=== PATIENT | female | born 1955 | race Caucasian/White ===

== ENCOUNTER 2017-08-08 14:51 | Emergency (ER) | payer OTHER, BC ==
[2017-08-08 15:19] VITALS: BP 133/80; PULSE 65; TEMP 98.4; BMI 28.8
[2017-08-08] MEDS ORDERED: KETOROLAC TROMETHAMINE 60 MG/2 ML VIAL IM ONE (15:56)
[2017-08-08] MEDS ORDERED: KETOROLAC TROMETHAMINE 60 MG/2 ML VIAL ONE (15:59)
--- NOTE | 2017-08-08 16:15 | PDOC ---
History of Present Illness - General Chief Complaint: Injury Stated Complaint: FALL Time Seen by Provider: 08/08/17 15:50 History Source: Patient Exam Limitations: No Limitations - History of Present Illness Initial Comments: 08/08/17 16:10 61 yr male female with c/o pain after slip and fall today at work. Pt slipped in a puddle of water and fell twisting her knee and her lower back. no LOC no head trauma. Occurred: reports: this afternoon Past History - Past Medical History Allergies/Adverse Reactions: Allergies Allergy/AdvReac Type Severity Reaction Status Date / Time No Known Allergies Allergy Verified 08/08/17 15:06 Home Medications: Ambulatory Orders Alprazolam 1 mg PO HS 04/19/15 Pantoprazole Sodium [Protonix] 40 mg PO DAILY 04/19/15 Aspirin Coated [Ecotrin -] 81 mg PO DAILY 07/20/16 Atorvastatin Ca [Lipitor] 10 mg PO DAILY 07/20/16 Cholecalciferol (Vitamin D3) [Vitamin D3] 2,000 unit PO DAILY 07/20/16 Cyanocobalamin [Vitamin B12 -] 1,000 mcg PO DAILY 07/20/16 Nebivolol [Bystolic -] 5 mg PO HS 07/20/16 Oxycodone HCl/Acetaminophen [Percocet 5-325 mg Tablet -] 2 tab PO Q4H #60 tablet MDD 6 08/15/16 Diazepam [Valium] 5 mg PO Q6H PRN #8 tablet MDD 15mg 08/08/17 Naproxen [Naprosyn -] 500 mg PO BID PRN #21 tablet 08/08/17 Anemia: No Asthma: No Cancer: No Cardiac Disorders: No CVA: No COPD: Yes (MILD) CHF: No Dementia: No Diabetes: No GI Disorders: Yes (REFLUX) Disorders: No HTN: Yes (DX 2005) Hypercholesterolemia: Yes (DX 2005) Liver Disease: No Seizures: No Thyroid Disease: No - Surgical History Abdominal Surgery: No Appendectomy: No Cardiac Surgery: No Cholecystectomy: Yes (SANTOSH HOANG-2003) Lung Surgery: No Neurologic Surgery: No Orthopedic Surgery: Yes (LEFT KNEE ARTHROSCOPY,LEFT WRIST SX DEQUERVAINS) - Psycho/Social/Smoking Cessation Hx Anxiety: Yes Suicidal Ideation: No Smoking Status: No Smoking History: Former smoker Have you smoked in the past 12 months: No Number of Cigarettes Smoked Daily: 20 If you are a former smoker, when did you quit?: 10/2010 Information on smoking cessation initiated: No Hx Alcohol Use: No Drug/Substance Use Hx: No Substance Use Type: None Hx Substance Use Treatment: No Trauma Specific PMHX - Complaint Specific PMHX Arthritis: No Back Injury: Yes Neck Injury: No Hx Sacro Iliac Joint Dysfunction: No Review of Systems - Review of Systems Able to Perform ROS?: Yes Is the patient limited Chinese proficient: No Constitutional: No: Symptoms Reported HEENTM: No: Symptoms Reported Respiratory: No: Symptoms reported Cardiac (ROS): No: Symptoms Reported ABD/GI: No: Symptoms Reported Musculoskeletal: Yes: See HPI *Physical Exam - Vital Signs Last Vital Signs Temp Pulse Resp BP Pulse Ox 98.4 F 65 17 133/80 99 08/08/17 15:01 08/08/17 15:01 08/08/17 15:01 08/08/17 15:01 08/08/17 15:01 - Physical Exam General Appearance: Yes: Nourished, Appropriately Dressed HEENT: positive: EOMI, MENDOZA Neck: positive: Supple Respiratory/Chest: positive: Lungs Clear, Normal Breath Sounds Cardiovascular: positive: Regular Rhythm, Regular Rate Gastrointestinal/Abdominal: positive: Normal Bowel Sounds, Soft Musculoskeletal: positive: Normal Inspection, Decreased Range of Motion (due to pain ). negative: CVA Tenderness, CVA Tenderness (R), CVA Tenderness (L), Muscle Spasm, Vertebral Tenderness Extremity: positive: Normal Capillary Refill, Normal Inspection, Normal Range of Motion. negative: Tender, Swelling Integumentary: positive: Normal Color, Dry, Warm Neurologic: positive: Fully Oriented, Alert, Normal Mood/Affect, Normal Response , Motor Strength 5/5 ED Treatment Course - Medications Given in the ED: ED Medications Discontinued Medications Generic Name Dose Route Start Last Admin Trade Name Freq PRN Reason Stop Dose Admin Ketorolac Tromethamine 60 mg 08/08/17 15:56 08/08/17 16:07 Toradol Injection - IM 08/08/17 15:57 60 mg ONCE ONE Administration Medical Decision Making - Medical Decision Making 08/08/17 16:12 cc: slip and fall twisted knee and low back , no bony tenderness, no deformity or swelling pt ambulatory steady gait will give toradol dc with naproysn and muscle relaxants for muscle strain pt agrees with plan all questions asked and answered 08/09/17 09:33 *DC/Admit/Observation/Transfer Diagnosis at time of Disposition: Muscle strain Knee sprain Qualifiers: Encounter type: initial encounter Involved ligament of knee: other ligament Laterality: left Qualified Code(s): S83.8X2A - Sprain of other specified parts of left knee, initial encounter - Prescriptions Prescriptions: Naproxen [Naprosyn -] 500 mg PO BID PRN #21 tablet PRN Reason: Pain Diazepam [Valium] 5 mg PO Q6H PRN #8 tablet MDD 15mg PRN Reason: Muscle Spasms - Referrals Referrals: Arnoldo Graves MD [Primary Care Provider] - - Patient Instructions Additional Instructions: warm compresses warm showers take the valium as needed for muscle spasm take naprosyn for pain do not drive, drink alcohol while taking valium follow with your doctor tomorrow if any worse - Post Discharge Activity Work/School Note: Back to Work
== END 2017-08-08 16:49 | disposition home or self-care (01) ==
LOC: SUPCPDRO 14:51 → JERFT 14:51
PROC: 3E0233Z Introduction of Anti-inflammatory into Muscle, Percutaneous Approach (ICD-10-PCS; principal; 2017-08-08)
DX: S83.8X2A Sprain of other specified parts of left knee, initial encounter (principal); W01.0XXA Fall on same level from slipping, tripping and stumbling without subsequent striking against object, initial encounter; Y93.89 Activity, other specified; Y92.69 Other specified industrial and construction area as the place of occurrence of the external cause; Y99.0 Civilian activity done for income or pay; I10 Essential (primary) hypertension; E78.00 Pure hypercholesterolemia, unspecified; J44.9 Chronic obstructive pulmonary disease, unspecified; K21.9 Gastro-esophageal reflux disease without esophagitis; Z87.891 Personal history of nicotine dependence
CPT/HCPCS: 99281-25

== ENCOUNTER 2018-08-16 10:01 | Inpatient (IN) | payer BC ==
[2018-08-16 10:25] VITALS: BMI 28.3
[2018-08-16] MEDS ORDERED: MECLIZINE HCL 25 MG TABLET (FP) PO ONE (11:08)
[2018-08-16] MEDS ORDERED: MECLIZINE HCL 25 MG TABLET (FP) ONE (11:16)
[2018-08-16] MEDS ORDERED: MECLIZINE HCL 12.5 MG TABLET ONE (11:17)
[2018-08-16 11:22] LABS: BASO % 0.8 % (0-2.0); EOS % 3.7 % (0-4.5); HEMATOCRIT 39.2 % (32.4-45.2); HEMOGLOBIN 13.1 GM/dL (10.7-15.3); LYMPH % 30.8 % (8-40); MCH 30.3 pg (25.7-33.7); MCHC 33.3 g/dl (32.0-36.0); MEAN CELL VOLUME 90.9 fl (80-96); MEAN PLT VOLUME 8.8 fl (7.5-11.1); MONO % 9.8 % (3.8-10.2); NEUT % 54.9 % (42.8-82.8); PLATELET COUNT 251 K/MM3 (134-434); RBC 4.31 M/mm3 (3.60-5.2); RDW 13.2 % (11.6-15.6); WHITE BLOOD COUNT 6.8 K/mm3 (4.0-10.0)
--- NOTE | 2018-08-16 11:30 | PDOC ---
History of Present Illness - General Chief Complaint: Lightheaded Stated Complaint: DIZZINESS Time Seen by Provider: 08/16/18 10:35 History Source: Patient Exam Limitations: No Limitations - History of Present Illness Initial Comments: 08/16/18 11:00 62-year-old Female with history of hypertension and dyslipidemia presents to ED with complaints of intermittent dizziness with normal movement for the past week without visual changes, headache, nausea, or weakness. Patient also states has had intermittent palpitations worsened with lying down along with intermittent sweating for the past 2 days. Patient describes a dull sensation to her right scapula and intermittently to her midsternal area without aggravating or alleviating factors. Patient states went to her neurologist yesterday who recommended following up with her transportation escort Dr. Hernandez since there were no acute findings on physical exam yesterday. Patient denies neck pain, fever, chills, recent surgery, recent travel, lower extremity edema, orthopnea, or chest pain presently. Patient does state history of vertigo numerous years ago and was on meclizine with no improvement. Timing/Duration: 1 week, intermittent Severity: moderate Associated Symptoms: reports: chest pain, diaphoresis. denies: shortness of breath, syncope, weakness Past History - Travel Traveled outside of the country in the last 30 days: No - Past Medical History Allergies/Adverse Reactions: Allergies Allergy/AdvReac Type Severity Reaction Status Date / Time No Known Allergies Allergy Verified 08/16/18 10:20 Home Medications: Ambulatory Orders Alprazolam 1 mg PO HS 04/19/15 Aspirin Coated [Ecotrin -] 81 mg PO DAILY 07/20/16 Atorvastatin Ca [Lipitor] 10 mg PO DAILY 07/20/16 Cyanocobalamin [Vitamin B12 -] 1,000 mcg PO DAILY 07/20/16 Nebivolol [Bystolic -] 40 mg PO HS 07/20/16 Anemia: No Asthma: No Cancer: No Cardiac Disorders: No CVA: No COPD: Yes (MILD) CHF: No Dementia: No Diabetes: No GI Disorders: Yes (REFLUX) Disorders: No HTN: Yes (DX 2005) Hypercholesterolemia: Yes (DX 2005) Liver Disease: No Seizures: No Thyroid Disease: No - Surgical History Abdominal Surgery: No Appendectomy: No Cardiac Surgery: No Cholecystectomy: Yes (SANT[facility] CHOLEY-2003) Lung Surgery: No Neurologic Surgery: No Orthopedic Surgery: Yes (LEFT KNEE ARTHROSCOPY,LEFT WRIST SX DEQUERVAINS) - Suicide/Smoking/Psychosocial Hx Smoking Status: No Smoking History: Former smoker Have you smoked in the past 12 months: No Number of Cigarettes Smoked Daily: 20 If you are a former smoker, when did you quit?: 2007 Information on smoking cessation initiated: No Hx Alcohol Use: No Drug/Substance Use Hx: No Substance Use Type: None Hx Substance Use Treatment: No Patient Lives Alone: No Lives with/in: spouse/SO Review of Systems - Review of Systems Able to Perform ROS?: No Constitutional: Yes: Diaphoresis HEENTM: No: Symptoms Reported Respiratory: No: Symptoms reported Cardiac (ROS): Yes: Chest Pain, Lightheadedness, Palpitations ABD/GI: No: Symptoms Reported : No: Symptoms Reported Musculoskeletal: No: Symptoms Reported Integumentary: No: Symptoms Reported Neurological: Yes: Dizziness Endocrine: No: Symptoms Reported Hematologic/Lymphatic: No: Symptoms Reported *Physical Exam - Vital Signs Last Vital Signs Temp Pulse Resp BP Pulse Ox 98.1 F 59 L 16 136/86 99 08/16/18 10:22 08/16/18 10:22 08/16/18 10:22 08/16/18 10:22 08/16/18 10:22 - Physical Exam General Appearance: Yes: Nourished, Appropriately Dressed. No: Apparent Distress HEENT: positive: EOMI, MENDOZA, TMs Normal. negative: Pharynx Normal, Pale Conjunctivae Neck: positive: Normal Thyroid, Supple Respiratory/Chest: positive: Lungs Clear, Normal Breath Sounds. negative: Respiratory Distress, Accessory Muscle Use Cardiovascular: positive: Regular Rhythm, Regular Rate. negative: Murmur Vascular Pulses: Dorsalis-Pedis (R): 2+, Doralis-Pedis (L): 2+ Gastrointestinal/Abdominal: positive: Soft. negative: Tenderness Musculoskeletal: negative: CVA Tenderness Extremity: positive: Normal Capillary Refill. negative: Pedal Edema Integumentary: positive: Normal Color, Warm, Moist Neurologic: positive: Normal Mood/Affect, Motor Strength 5/5, Other (negative Hallpikes test) Heart Score/ECG Review - History History: Slightly suspicious - Electrocardiogram EKG: Normal - Age Age: 45-65 - Risk Factors Risk Factors Heart Score: Yes Hx Hypercholesterolemia, Yes Hx Hypertension Based on the list above the patient has:: 1-2 risk factors - Troponin Troponin: </= normal limit - Score Heart Score - Total: 2 - ECG Intrepretation Rhythm: Regular Rhythm (sinus bradycardia 58. no st elevation or depression) ED Treatment Course - LABORATORY CBC & Chemistry Diagram: 08/16/18 11:12 08/16/18 11:12 - RADIOLOGY Radiology Studies Ordered: Category Date Time Status HEAD CT WITHOUT CONTRAST [CT] Stat CT Scan 08/16/18 11:07 Ordered CHEST X-RAY PORTABLE* [RAD] Stat Radiology 08/16/18 11:07 Ordered CAROTID COLOR FLOW DOPP US [US] Stat Ultrasound 08/16/18 11:08 Ordered Medical Decision Making - Medical Decision Making 08/16/18 11:04 Patient complains of intermittent palpitations, diaphoresis along with dizziness for the past week. Patient on exam had no acute physical findings. Patient states last echo was over 2 years ago and does have history of dyslipidemia. Patient denies thyroid disorders, GI disorders, recent travel, recent illness. Patient's concerning for the thyroid disorder, ACS, vertical, electrolyte derangements, or occluded carotid arteries. Patient ordered for labs, head CT, urine, EKG, carotid duplex, and will consult patient's transportation escort shortly. 08/16/18 11:46 Laboratory Tests 08/16/18 08/16/18 08/16/18 11:12 11:12 11:12 WBC 6.8 Hgb 13.1 Hct 39.2 Plt Count 251 Neutrophils % 54.9 PT with INR Pending INR Pending Urine Blood 2+ H Urine Nitrite Negative Ur Leukocyte Esterase Trace 08/16/18 12:55 Shows mild atherosclerotic disease left greater than right with no evidence of hemodynamically significant stenosis. Head CT shows no evidence of acute intracranial pathology 08/16/18 12:56 Laboratory Tests 08/16/18 08/16/18 08/16/18 11:12 11:12 11:12 Sodium 141 Potassium 4.3 Chloride 106 Carbon Dioxide 29 Anion Gap 7 L BUN 18 Creatinine 0.9 Random Glucose 89 Calcium 9.7 Magnesium 2.1 Total Bilirubin 0.6 AST 25 ALT 52 Alkaline Phosphatase 111 Creatine Kinase 76 Troponin I < 0.02 Total Protein 7.3 Albumin 3.7 Lipase 211 TSH 0.83 Urine Blood 2+ H Ur Leukocyte Esterase Trace Urine RBC (Auto) 9 Called to be placed the patient's transportation escort Dr. Hernandez chest x-ray pending. Will evaluate shortly 08/16/18 13:49 Negative for acute findings. Patient continues with dizziness worsened when ambulating. case discussed a transportation escort, Dr. Villalpando and is aware of plaints lab findings and plan for for telemetry observation. Patient also states Intermittent palpitations since arrival. 08/16/18 14:30 Case discussed with CARPENTER INSPECTOR, Zhen and will admit to telemetry observation. *DC/Admit/Observation/Transfer Diagnosis at time of Disposition: Palpitations, Dizziness - Discharge Dispostion Decision to Admit order: Yes - Referrals Referrals: Arnoldo Graves MD [Primary Care Provider] - - Patient Instructions - Post Discharge Activity
[2018-08-16 11:37] LABS: URINE APPEARANCE CLEAR; URINE BILIRUBIN NEGATIVE (<2.0 mg/dL); URINE COLOR LTYELLOW; URINE GLUCOSE (UA) NEGATIVE (NEGATIVE); URINE KETONE NEGATIVE (NEGATIVE); URINE LEUK ESTERASE TRACE (NEGATIVE); URINE NITRITE NEGATIVE (NEGATIVE); URINE PROTEIN NEGATIVE (NEGATIVE); URINE UROBILINOGEN NEGATIVE mg/dL (0.2-1.0)
[2018-08-16 11:39] LABS: INR 1.04 (0.83-1.09); PROTHROMBIN TIME (PATIENT) 11.7 SEC (9.7-13.0)
[2018-08-16 11:46] LABS: EPI CELLS RARE /HPF (FEW)
[2018-08-16 11:52] LABS: ALBUMIN 3.7 g/dl (3.4-5.0); ALK PHOS 111 U/L (45-117); ANION GAP 7 MMOL/L (8-16); BILIRUBIN,TOTAL 0.6 mg/dL (0.2-1); BLOOD UREA NITROGEN 18 mg/dL (7-18); CALCIUM 9.7 mg/dL (8.5-10.1); CHLORIDE 106 mmol/L (98-107); CO2 29 mmol/L (21-32); CREATININE 0.9 mg/dL (0.55-1.3); GLUCOSE,RANDOM 89 mg/dL (74-106); LIPASE 211 U/L (73-393); MAGNESIUM 2.1 mg/dL (1.8-2.4); POTASSIUM 4.3 mmol/L (3.5-5.1); SGOT/AST 25 U/L (15-37); SGPT/ALT 52 U/L (13-61); SODIUM 141 mmol/L (136-145); TOT PROT 7.3 g/dl (6.4-8.2)
[2018-08-16] MEDS ORDERED: ALPRAZolam 0.25 MG TABLET PO PRN (14:20)
--- NOTE | 2018-08-16 15:10 | CON.CARD ---
Consult Consult Specialty:: Cardiology Referred by:: Su Hernandez NP Reason for Consultation:: Dizziness - History of Present Illness Chief Complaint: Dizziness History of Present Illness: 62-year-old Female with history of hypertension, dyslipidemia, palpitations, chest pain syndrome, mitral valve prolapse syndrome last seen by [employer] Georgie Izaguirre Dec 17, 2017 presents to ED with complaints of constant dizziness worse by turning head up and down without nausea, emesis, visual scotoma, hearing changes, true syncope, change in chronic chest pain, dyspnea or palpitation pattern. Patient does state history of vertigo numerous years ago and was on meclizine with no improvement. - History Source History Provided By: Patient Limitations to Obtaining History: No Limitations - Alcohol/Substance Use Hx Alcohol Use: No - Smoking History Smoking history: Former smoker Have you smoked in the past 12 months: No Aproximately how many cigarettes per day: 20 If you are a former smoker, when did you quit?: 2007 Home Medications - Allergies Allergies/Adverse Reactions: Allergies Allergy/AdvReac Type Severity Reaction Status Date / Time No Known Allergies Allergy Verified 08/16/18 10:20 - Home Medications Home Medications: Ambulatory Orders Alprazolam 1 mg PO HS 04/19/15 Aspirin Coated [Ecotrin -] 81 mg PO DAILY 07/20/16 Atorvastatin Ca [Lipitor] 10 mg PO DAILY 07/20/16 Cyanocobalamin [Vitamin B12 -] 1,000 mcg PO DAILY 07/20/16 Nebivolol [Bystolic -] 40 mg PO HS 07/20/16 Review of Systems - Review of Systems Constitutional: reports: No Symptoms Eyes: reports: No Symptoms HENT: reports: No Symptoms Neck: reports: No Symptoms Cardiovascular: reports: Chest Pain, Palpitations, Shortness of Breath Respiratory: reports: No Symptoms Gastrointestinal: reports: No Symptoms Genitourinary: reports: No Symptoms Musculoskeletal: reports: No Symptoms Integumentary: reports: No Symptoms Neurological: reports: Dizziness Endocrine: reports: No Symptoms Hematology/Lymphatic: reports: No Symptoms Vital Signs: Vital Signs Temperature 97.6 F 08/16/18 13:53 Pulse Rate 59 L 08/16/18 13:53 Respiratory Rate 16 08/16/18 13:53 Blood Pressure 120/72 08/16/18 13:53 O2 Sat by Pulse Oximetry (%) 98 08/16/18 14:50 Constitutional: Yes: No Distress, Calm, Thin Neck: Yes: Supple Respiratory: Yes: Regular, CTA Bilaterally Gastrointestinal: Yes: Normal Bowel Sounds, Soft Cardiovascular: Yes: Regular Rate and Rhythm JVD: No Carotid Bruit: No Heart Sounds: Yes: S1, S2 Edema: No - Other Data Labs, Other Data: CBC, BMP 08/16/18 11:12 08/16/18 11:12 INR, PTT INR 1.04 (0.83-1.09) 08/16/18 11:12 Troponin, BNP 08/16/18 11:12 Troponin I < 0.02 Troponin, BNP 08/16/18 11:12 Troponin I < 0.02 SB @ 58 1st deg AVB Ejection Fraction %: LVEF > or = 40 % Imaging - Results Chest X-ray: Pending Cat Scan: Report Reviewed (HCT: Negative) Ultrasound: Report Reviewed (Carotid US: No stenosis) Problem List - Problems (1) Mitral valve prolapse syndrome Code(s): I34.1 - NONRHEUMATIC MITRAL (VALVE) PROLAPSE (2) Hypertension Code(s): I10 - ESSENTIAL (PRIMARY) HYPERTENSION Qualifiers: Hypertension type: essential hypertension Qualified Code(s): I10 - Essential (primary) hypertension (3) Hyperlipidemia Code(s): E78.5 - HYPERLIPIDEMIA, UNSPECIFIED Qualifiers: Hyperlipidemia type: pure hypercholesterolemia Qualified Code(s): E78.00 - Pure hypercholesterolemia, unspecified; E78.0 - Pure hypercholesterolemia (4) Dizziness Code(s): R42 - DIZZINESS AND GIDDINESS (5) Palpitations Code(s): R00.2 - PALPITATIONS Assessment/Plan 1. Dizziness with head position changes suggestive of benign positional vertigo 2. H/o palpitations, chest pain c/w mitral valve prolapse syndrome 3. HTN 4. Hyperlipidemia 1. Decrease Bystolic 5 qd, ASA 81 qd, Lipitor 10 qd, Protonix 40 qd and observe for clinical response 2. Check orthostatic vital signs, telemetry observation to exclude sustained arrhythmia 3. Meclizine as needed, outpatient ENT f/u for VNG/ENG 4. Thank you for consultative opportunity
--- NOTE | 2018-08-16 15:27 | EKG ---
Test Reason : Blood Pressure : / mmHG Vent. Rate : 058 BPM Atrial Rate : 058 BPM P-R Int : 202 ms QRS Dur : 076 ms QT Int : 432 ms P-R-T Axes : 057 045 048 degrees QTc Int : 424 ms SINUS BRADYCARDIA OTHERWISE NORMAL ECG WHEN COMPARED WITH ECG OF 03-AUG-2016 06:46, NO SIGNIFICANT CHANGE WAS FOUND Confirmed by MD Miller Daniel ([id number]) on 08/16/2018 3:26:30 PM Referred By: Confirmed By:Get Miller MD
--- NOTE | 2018-08-16 16:18 | HP ---
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 Patient does state history of vertigo numerous years ago and was on meclizine with no improvement. History Source: Patient, Medical Record Limitations to Obtaining History: No Limitations - Smoking History Smoking history: Former smoker Have you smoked in the past 12 months: No Aproximately how many cigarettes per day: 20 If you are a former smoker, when did you quit?: 2007 - Alcohol/Substance Use Hx Alcohol Use: No Home Medications - Allergies Allergies/Adverse Reactions: Allergies Allergy/AdvReac Type Severity Reaction Status Date / Time No Known Allergies Allergy Verified 08/16/18 10:20 - Home Medications Home Medications: Ambulatory Orders Alprazolam 1 mg PO HS 04/19/15 Aspirin Coated [Ecotrin -] 81 mg PO DAILY 07/20/16 Atorvastatin Ca [Lipitor] 10 mg PO DAILY 07/20/16 Cyanocobalamin [Vitamin B12 -] 1,000 mcg PO DAILY 07/20/16 Nebivolol [Bystolic -] 40 mg PO HS 07/20/16 Review of Systems - Review of Systems Constitutional: reports: No Symptoms Eyes: reports: No Symptoms HENT: reports: No Symptoms Neck: reports: No Symptoms Cardiovascular: reports: No Symptoms Respiratory: reports: No Symptoms Gastrointestinal: reports: No Symptoms Genitourinary: reports: No Symptoms Breasts: reports: No Symptoms Reported Musculoskeletal: reports: No Symptoms Integumentary: reports: No Symptoms Neurological: reports: Dizziness Endocrine: reports: No Symptoms Hematology/Lymphatic: reports: No Symptoms Psychiatric: reports: No Symptoms Physical Examination Vital Signs: Vital Signs Temperature 97.6 F 08/16/18 13:53 Pulse Rate 59 L 08/16/18 13:53 Respiratory Rate 16 08/16/18 13:53 Blood Pressure 120/72 08/16/18 13:53 O2 Sat by Pulse Oximetry (%) 98 08/16/18 14:50 Constitutional: Yes: Well Nourished, No Distress, Calm Cardiovascular: Yes: Regular Rate and Rhythm Respiratory: Yes: Regular Gastrointestinal: Yes: Normal Bowel Sounds, Soft Musculoskeletal: Yes: WNL Extremities: Yes: WNL Edema: No Peripheral Pulses WNL: Yes Neurological: Yes: Alert, Oriented Psychiatric: Yes: Alert, Oriented Labs: CBC, BMP 08/16/18 11:12 08/16/18 11:12 Problem List - Problems (1) Dizziness Assessment/Plan: -Seen by cardiology -likely vertigo -obs overnight to r/o any arrhythmia -meclizine 25 mg po TID -Orthostatic vitals -decrease bystolic to 5 mg po daily Code(s): R42 - DIZZINESS AND GIDDINESS Assessment/Plan see problem list
[2018-08-16] MEDS ORDERED: ATORVASTATIN CA 10 MG TABLET (FP) PO SCH (22:00)
[2018-08-17] MEDS: MECLIZINE HCL 25 MG TABLET (FP) PO SCH ×3 (00:08→11:53)
[2018-08-17] MEDS ORDERED: NEBIVOLOL 5 MG TABLET (FP) PO SCH (10:00)
[2018-08-17] MEDS ORDERED: ASPIRIN COATED 81 MG TABLET.EC PO SCH (10:00)
[2018-08-17] MEDS ORDERED: CYANOCOBALAMIN 1,000 MCG TABLET (FP) PO SCH (10:00)
[2018-08-17] MEDS ORDERED: ENOXAPARIN NA (PORCINE) 40 MG/0.4 ML DISP.SYRIN SQ SCH (10:00)
--- NOTE | 2018-08-17 12:41 | DS ---
Physical Examination Vital Signs: Vital Signs Temperature 97.8 F 08/17/18 06:00 Pulse Rate 59 L 08/17/18 06:00 Respiratory Rate 20 08/17/18 06:00 Blood Pressure 121/78 08/17/18 06:00 O2 Sat by Pulse Oximetry (%) 98 08/16/18 20:36 Findings/Remarks: 62-year-old Female with history of hypertension, dyslipidemia, palpitations, chest pain syndrome, mitral valve prolapse syndrome last seen by [employer] Georgie Izaguirre Dec 17, 2017 presents to ED with complaints of constant dizziness worse by turning head up and down without nausea, emesis, visual scotoma, hearing changes, true syncope, change in chronic chest pain, dyspnea or palpitation pattern. Patient does state history of vertigo numerous years ago and was on meclizine with no improvement. Constitutional: Yes: Well Nourished, No Distress, Calm Cardiovascular: Yes: Regular Rate and Rhythm Respiratory: Yes: Regular Gastrointestinal: Yes: Normal Bowel Sounds, Soft Musculoskeletal: Yes: WNL Extremities: Yes: WNL Edema: No Peripheral Pulses WNL: Yes Neurological: Yes: Alert, Oriented Psychiatric: Yes: Alert, Oriented Labs: CBC, BMP 08/16/18 11:12 08/16/18 11:12 Discharge Summary Reason For Visit: PALPITATIONS Current Active Problems Dizziness (Acute) Hyperlipidemia (Acute) Hypertension (Acute) Mitral valve prolapse syndrome (Acute) Palpitations (Acute) Condition: Stable - Instructions Referrals: Arnoldo Graves MD [Primary Care Provider] - Hudson Gonzales MD [Staff Physician] - Disposition: HOME - Home Medications Comprehensive Discharge Medication List: Ambulatory Orders Alprazolam 1 mg PO HS 04/19/15 Aspirin Coated [Ecotrin -] 81 mg PO DAILY 07/20/16 Atorvastatin Ca [Lipitor] 10 mg PO DAILY 07/20/16 Cyanocobalamin [Vitamin B12 -] 1,000 mcg PO DAILY 07/20/16 Meclizine HCl [Antivert -] 25 mg PO Q6HPO #90 tablet 08/17/18 Nebivolol [Bystolic -] 5 mg PO DAILY #30 tab 08/17/18
[2018-08-17 13:03] VITALS: BP 119/70; PULSE 60; TEMP 98
== END 2018-08-17 14:33 | disposition home or self-care (01) | DRG 149 ==
LOC: JER 10:01 → J4W 15:59
PROVIDERS: ADMIT Family Medicine; ATTEND Family Medicine
DX: H81.10 Benign paroxysmal vertigo, unspecified ear (principal); I34.1 Nonrheumatic mitral (valve) prolapse; R00.2 Palpitations; I10 Essential (primary) hypertension; E78.5 Hyperlipidemia, unspecified; Z87.891 Personal history of nicotine dependence
CPT/HCPCS: 36415; 70450-TC; 71046-TC-FY; 80053; 81003; 81015; 82550; 83690; 83735; 84443; 84484; 85025; 85610; 93005; 93010; 93880-TC; 99285-25

== ENCOUNTER 2018-08-25 11:14 | Emergency (ER) | payer BC ==
[2018-08-25 11:22] VITALS: BP 137/99; PULSE 68; TEMP 98.6; BMI 28.8
--- NOTE | 2018-08-25 11:23 | PDOC ---
Attending Attestation - Resident Resident Name: Evan Plummer - ED Attending Attestation I have performed the following: I have examined & evaluated the patient, The case was reviewed & discussed with the resident, I agree w/resident's findings & plan, Exceptions are as noted - HPI HPI: 08/25/18 11:23 Ms Mixon is a 62 yo F h/o HTN, HLD s/p recent admission for palpitations. 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 NECK: Normal range of motion, supple without lymphadenopathy LUNGS: Breath sounds equal, clear to auscultation bilaterally HEART:Regular rate and rhythm, normal S1 and S2 without murmur, rub or gallop. ABDOMEN: Soft, nontender EXTREMITIES: Normal range of motion, no deformities, no weakness NEUROLOGICAL: Cranial nerves II through XII grossly intact. Normal speech. No focal neurological deficits. hip flexion, knee flexion in tact Crosses leg with no difficulty Sensation in tact Plantar and dorsi flexion at ankles in tact MUSCULOSKELETAL: low cloth bleaching range back tender to palpation 08/25/18 12:01 - Medical Decision Making 08/25/18 11:21 62 yo F presents ambulatory to the ER with a complaint of back pain Clinically this patient can be ruled out for serious pathology given there is a completely normal neurological exam, no history of IV drug use, and no history of bowel or bladder incontinence, no perianal numbness/tingling, no constipation or urinary retention. No risk factors or findings concerning for epidural abscess, diskitis, vertebral osteomyelitis, cord compression, cauda equina, vertebral fracture or bone malignancy, AAA, or pyelonephritis. Once the patient's pain was adequately controlled, the patient was able to ambulate and be discharged in stable condition with anticipatory guidance provided. Patient instructed to consider further imaging and workup through their primary care physician as an outpatient if symptoms persist.
[2018-08-25] MEDS ORDERED: LIDOCAINE 5% TOPICAL PATCH TP ONE (11:30)
[2018-08-25] MEDS ORDERED: KETOROLAC TROMETHAMINE 60 MG/2 ML VIAL IM ONE (11:30)
[2018-08-25] MEDS ORDERED: CYCLOBENZAPRINE HCL 10 MG TABLET (FP) PO ONE (11:31)
[2018-08-25] MEDS ORDERED: LIDOCAINE 5% TOPICAL PATCH ONE (11:42)
[2018-08-25] MEDS ORDERED: CYCLOBENZAPRINE HCL 10 MG TABLET (FP) ONE (11:42)
[2018-08-25] MEDS ORDERED: KETOROLAC TROMETHAMINE 60 MG/2 ML VIAL ONE (11:42)
--- NOTE | 2018-08-25 11:48 | PDOC ---
History of Present Illness - General Chief Complaint: Back Pain Stated Complaint: BACK PAIN Time Seen by Provider: 08/25/18 11:19 History Source: Patient Exam Limitations: No Limitations - History of Present Illness Initial Comments: 08/25/18 11:43 Patient is a 62F with history of HTN, HLD and back pain here today complaining of 1 day of lower right sided back pain. The patient reports onset after twisting while putting up Halloween decorations. Denies fevers, chills, IVDA, cancer history, gait disturbances, foot drops. Pain is worsened with flexion of hip. Patient has had several MRIs in the past showing "bulging discs". Patient tried heating pads before coming into the ED today, no other medications. Past History - Past Medical History Allergies/Adverse Reactions: Allergies Allergy/AdvReac Type Severity Reaction Status Date / Time No Known Allergies Allergy Verified 08/25/18 11:15 Home Medications: Ambulatory Orders Alprazolam 1 mg PO HS 04/19/15 Aspirin Coated [Ecotrin -] 81 mg PO DAILY 07/20/16 Atorvastatin Ca [Lipitor] 10 mg PO DAILY 07/20/16 Meclizine HCl [Antivert -] 25 mg PO Q6HPO #90 tablet 08/17/18 Nebivolol [Bystolic -] 5 mg PO DAILY #30 tab 08/17/18 Cyclobenzaprine HCl [Flexeril 10 mg] 10 mg PO BID #10 tablet 08/25/18 Mv-Mins/Folic Acid/Guarana/Caf [One Daily Tablet] 1 each PO DAILY 08/25/18 Anemia: No Asthma: No Cancer: No Cardiac Disorders: No CVA: No COPD: Yes (MILD) CHF: No Dementia: No Diabetes: No GI Disorders: Yes (REFLUX) Disorders: No HTN: Yes Hypercholesterolemia: Yes Liver Disease: No Seizures: No Thyroid Disease: No Other medical history: VERTIGO - Surgical History Abdominal Surgery: No Appendectomy: No Cardiac Surgery: No Cholecystectomy: Yes (LAP BRIGID-2003) Lung Surgery: No Neurologic Surgery: No Orthopedic Surgery: Yes (LEFT KNEE ARTHROSCOPY,LEFT WRIST SX DEQUERVAINS) - Suicide/Smoking/Psychosocial Hx Smoking Status: No Smoking History: Former smoker Have you smoked in the past 12 months: No Number of Cigarettes Smoked Daily: 20 If you are a former smoker, when did you quit?: 2007 Information on smoking cessation initiated: No Hx Alcohol Use: No Drug/Substance Use Hx: No Substance Use Type: None Hx Substance Use Treatment: No Review of Systems - Review of Systems Comments:: 08/25/18 11:45 GENERAL/CONSTITUTIONAL: No fever or chills. No weakness. HEAD, EYES, EARS, NOSE AND THROAT: No change in vision. No ear pain or discharge. No sore throat. CARDIOVASCULAR: No chest pain or shortness of breath RESPIRATORY: No cough, wheezing, or hemoptysis. GASTROINTESTINAL: No nausea, vomiting, diarrhea or constipation. GENITOURINARY: No dysuria, frequency, or change in urination. MUSCULOSKELETAL: No joint or muscle swelling or pain. No neck pain +back pain. SKIN: No rash NEUROLOGIC: No headache, vertigo, loss of consciousness, or change in strength/ sensation. ENDOCRINE: No increased thirst. No abnormal weight change HEMATOLOGIC/LYMPHATIC: No anemia, easy bleeding, or history of blood clots. ALLERGIC/IMMUNOLOGIC: No hives or skin allergy. *Physical Exam - Vital Signs Last Vital Signs Temp Pulse Resp BP Pulse Ox 98.6 F 68 18 137/99 98 08/25/18 11:15 08/25/18 11:15 08/25/18 11:15 08/25/18 11:15 08/25/18 11:15 - Physical Exam Comments: 08/25/18 11:45 GENERAL: Awake, alert, and fully oriented, in no acute distress BACK: No midline tenderness, +lower right sided tenderness, no erythema or signs of trauma HEAD: No signs of trauma, normocephalic, atraumatic EYES: PERRLA, EOMI, sclera anicteric, conjunctiva clear ENT: Auricles normal inspection, hearing grossly normal, nares patent, oropharynx clear without exudates. Moist mucosa NECK: Normal ROM, supple, no lymphadenopathy, JVD, or masses LUNGS: No distress, speaks full sentences, clear to auscultation bilaterally HEART: Regular rate and rhythm, normal S1 and S2, no murmurs, rubs or gallops, peripheral pulses normal and equal bilaterally. ABDOMEN: Soft, nontender, normoactive bowel sounds. No guarding, no rebound. No masses EXTREMITIES: Normal inspection, Normal range of motion, no edema. No clubbing or cyanosis. NEUROLOGICAL: Cranial nerves II through XII grossly intact. Normal speech, normal gait, no focal sensorimotor deficits SKIN: Warm, Dry, normal turgor, no rashes or lesions noted. Medical Decision Making - Medical Decision Making 08/25/18 11:47 Patient is 62F with history of back pain, HTN, HLD here today with back pain. Vitals normal and stable. No red flags. Will treat with lidocaine patch, toradol , flexiril. Patient has ride home available. 08/25/18 11:56 Patient reassessed, wants to go home and rest there. Will discharge with return precautions and pcp follow up. *DC/Admit/Observation/Transfer Diagnosis at time of Disposition: Back pain - Discharge Dispostion Disposition: HOME Condition at time of disposition: Good Decision to Admit order: No - Prescriptions Prescriptions: Cyclobenzaprine HCl [Flexeril 10 mg] 10 mg PO BID #10 tablet - Referrals Referrals: Arnoldo Graves MD [Primary Care Provider] - - Patient Instructions Printed Discharge Instructions: DI for Low Back Pain Additional Instructions: Please follow up with your primary care doctor this week. Please take motrin, flexeril and lidocaine patches for pain. The motrin and lidocaine patches are available over the counter. Please return if you have any new, worsening or concerning symptoms, especially fevers, leg weakness, or increasing pain. Please take off the lidocaine patch at midnight tonight. - Post Discharge Activity Forms/Work/School Notes: Back to Work
[2018-08-25] MEDS ORDERED: LIDOCAINE PATCH REMOVAL MC SCH (22:00)
== END 2018-08-25 12:04 | disposition home or self-care (01) ==
LOC: FER 11:14
PROC: 3E0233Z Introduction of Anti-inflammatory into Muscle, Percutaneous Approach (ICD-10-PCS; principal; 2018-08-25)
DX: M54.5 Low back pain (principal); I10 Essential (primary) hypertension; E78.5 Hyperlipidemia, unspecified; Z87.891 Personal history of nicotine dependence; K21.9 Gastro-esophageal reflux disease without esophagitis; J44.9 Chronic obstructive pulmonary disease, unspecified
CPT/HCPCS: 99283-25

== ENCOUNTER 2019-02-23 17:09 | Emergency (ER) | payer OTHER, BC ==
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
[2019-02-23 17:25] VITALS: BP 149/98; PULSE 66; TEMP 98.4
[2019-02-23] MEDS ORDERED: ACETAMINOPHEN 325 MG TABLET (FP) PO ONE (17:25)
[2019-02-23] MEDS ORDERED: ACETAMINOPHEN 325 MG TABLET (FP) ONE (17:33)
== END 2019-02-23 18:50 | disposition home or self-care (01) ==
LOC: FER 17:09
DX: M25.561 Pain in right knee (principal); V03.00XA Pedestrian on foot injured in collision with car, pick-up truck or van in nontraffic accident, initial encounter; Y93.89 Activity, other specified; Y92.410 Unspecified street and highway as the place of occurrence of the external cause; Z87.891 Personal history of nicotine dependence; K21.9 Gastro-esophageal reflux disease without esophagitis; J44.9 Chronic obstructive pulmonary disease, unspecified; I10 Essential (primary) hypertension; E78.00 Pure hypercholesterolemia, unspecified
CPT/HCPCS: 73560-TC-RT-FY; 99283-25

== ENCOUNTER 2019-06-29 09:42 | Inpatient (IN) | payer BC ==
--- NOTE | 2019-06-29 10:03 | PDOC ---
History of Present Illness - General Chief Complaint: Chest Pain Stated Complaint: CHEST PAIN/ SOB Time Seen by Provider: 06/29/19 10:02 Past History - Past Medical History Allergies/Adverse Reactions: Allergies Allergy/AdvReac Type Severity Reaction Status Date / Time No Known Allergies Allergy Verified 06/29/19 09:50 Home Medications: Ambulatory Orders Alprazolam 1 mg PO HS 04/19/15 Aspirin Coated [Ecotrin -] 81 mg PO DAILY 07/20/16 Atorvastatin Ca [Lipitor] 10 mg PO DAILY 07/20/16 Nebivolol [Bystolic -] 5 mg PO DAILY #30 tab 08/17/18 Pantoprazole Sodium 40 mg PO DAILY 02/23/19 Anemia: No Asthma: No Cancer: No Cardiac Disorders: Yes (coronary artery disease) CVA: No COPD: Yes (MILD) CHF: No Dementia: No Diabetes: No GI Disorders: Yes (REFLUX) Disorders: No HTN: Yes Hypercholesterolemia: Yes Liver Disease: No Seizures: No Thyroid Disease: No - Surgical History Abdominal Surgery: Yes (tubal ligation) Appendectomy: No Cardiac Surgery: No Cholecystectomy: Yes (LAP BRIGID-2003) Lung Surgery: No Neurologic Surgery: No Orthopedic Surgery: Yes (LEFT KNEE ARTHROSCOPY,LEFT WRIST SX DEQUERVAINS) - Suicide/Smoking/Psychosocial Hx Smoking Status: No Smoking History: Former smoker Have you smoked in the past 12 months: No Number of Cigarettes Smoked Daily: 20 If you are a former smoker, when did you quit?: 2009 Information on smoking cessation initiated: No Hx Alcohol Use: No Drug/Substance Use Hx: No Substance Use Type: None Hx Substance Use Treatment: No *Physical Exam - Vital Signs Last Vital Signs Temp Pulse Resp BP Pulse Ox 98.5 F 84 17 125/77 98 06/29/19 09:46 06/29/19 09:46 06/29/19 09:46 06/29/19 09:46 06/29/19 09:46 ED Treatment Course - LABORATORY CBC & Chemistry Diagram: 06/29/19 11:55 06/29/19 10:24 Medical Decision Making - Medical Decision Making HPI: 63yo F with PMH of COPD, CAD, HTN, HLD, GERD presenting with chest pain x 2 weeks. The pain is described as a "heaviness," is non-radiating, and located midsternally. Patient states the pain became worse, now rated 6-7/10 and also associated with shortness of breath and so she decided to come to the emergency room for further evaluation. Nothing makes the pain better or worse. She also endorses epigastric pain which she associates with her GERD. Denies nausea, vomiting, but endorses diaphoresis. No hemoptysis, no recent surgical history, no recent immobilization, no hormone use, no history of DVT or PE. PCP/Pulm: Dr. Holguin Cardiology: Dr. Beckwith ROS: Constitutional: no fever, +diaphoresis HEENT: no throat pain, no dysphagia Cardiovascular: +chest pain, no palpitations Respiratory: no cough, +shortness of breath Gastrointestinal: no abdominal pain, no nausea Genitourinary: no dysuria, no hematuria Musculoskeletal: no myalgia, no arthralgia Skin: no rash, no itching Neurologic: no headache, no weakness PE: General: Awake, alert, and fully oriented, in no acute distress Head: No signs of trauma Eyes: EOMI, sclera anicteric ENT: Dry mucus membranes Neck: Normal ROM, supple Lungs: Lungs clear, Normal breath sounds Cardio: Regular rhythm, S1 and S2 present Abdomen: Soft, nontender. No guarding, no rebound, no masses Extremities: Normal range of motion, Distal pulses present SKIN: Warm, Dry, normal turgor Neurologic: Cranial nerves II through XII grossly intact. Normal speech ED Courses/MDM: DDX including but not limited to ACS, PE, PNA, MSK, GERD EKG: rate 85, QTc 421, NSR 06/29/19 10:02 Pending labs Plan to contact patient's tube man regarding patient's disposition Bedside POCUS gallbladder without acute abnormality 06/29/19 12:46 CBC WBC 15.0 K/mm3 (4.0-10.0) H 06/29/19 11:55 RBC 4.28 M/mm3 (3.60-5.2) 06/29/19 11:55 Hgb 12.7 GM/dL (10.7-15.3) 06/29/19 11:55 Hct 37.7 % (32.4-45.2) 06/29/19 11:55 MCV 88.1 fl (80-96) 06/29/19 11:55 MCH 29.8 pg (25.7-33.7) 06/29/19 11:55 MCHC 33.8 g/dl (32.0-36.0) 06/29/19 11:55 RDW 13.0 % (11.6-15.6) 06/29/19 11:55 Plt Count 239 K/MM3 (134-434) 06/29/19 11:55 MPV 8.8 fl (7.5-11.1) 06/29/19 11:55 Absolute Neuts (auto) 13.5 K/mm3 (1.5-8.0) H 06/29/19 11:55 Neutrophils % 90.0 % (42.8-82.8) H D 06/29/19 11:55 Lymphocytes % 4.9 % (8-40) L D 06/29/19 11:55 Monocytes % 4.9 % (3.8-10.2) 06/29/19 11:55 Eosinophils % 0.1 % (0-4.5) D 06/29/19 11:55 Basophils % 0.1 % (0-2.0) 06/29/19 11:55 Nucleated RBC % 0 % (0-0) 06/29/19 11:55 Leukocytosis CMP Sodium 140 mmol/L (136-145) 06/29/19 10:24 Potassium 3.8 mmol/L (3.5-5.1) 06/29/19 10:24 Chloride 105 mmol/L (98-107) 06/29/19 10:24 Carbon Dioxide 28 mmol/L (21-32) 06/29/19 10:24 Anion Gap 7 MMOL/L (8-16) L 06/29/19 10:24 BUN 10.9 mg/dL (7-18) 06/29/19 10:24 Creatinine 0.7 mg/dL (0.55-1.3) 06/29/19 10:24 Est GFR (CKD-EPI)AfAm 106.12 06/29/19 10:24 Est GFR (CKD-EPI)NonAf 91.56 06/29/19 10:24 Random Glucose 106 mg/dL (74-106) 06/29/19 10:24 Calcium 9.4 mg/dL (8.5-10.1) 06/29/19 10:24 Total Bilirubin 0.4 mg/dL (0.2-1) 06/29/19 10:24 AST 57 U/L (15-37) H 06/29/19 10:24 ALT 84 U/L (13-61) H 06/29/19 10:24 Alkaline Phosphatase 147 U/L (45-117) H 06/29/19 10:24 Creatine Kinase 66 U/L (26-192) 06/29/19 10:24 Troponin I 0.05 ng/ml (0.00-0.05) 06/29/19 10:24 B-Natriuretic Peptide 725.9 pg/ml (5-125) H 06/29/19 10:24 Total Protein 7.2 g/dl (6.4-8.2) 06/29/19 10:24 Albumin 3.5 g/dl (3.4-5.0) 06/29/19 10:24 Lipase 120 U/L (73-393) 06/29/19 10:24 Electrolytes unremarkable Tpn 0.05 BNP elevated Mild transaminitis, elevated ALP CXR: "No evidence of widening of the superior mediastinum. The cardiac silhouette is not enlarged.. Uncoiled thoracic aorta. There is no evidence of pneumonia, CHF, pulmonary edema, atelectasis. No evidence of bulky hilar adenopathy. The visualized osseous structures appear intact. Bilateral AC joint arthropathy. Impression. No evidence of active pulmonary disease " Paging Dr. Simon 06/29/19 13:[address] Irby who works with Dr. Fox. We will admit the patient to telemetry observation. 06/29/19 13:[address] Foster who accepted patient for admission under Dr. Valencia. Consults placed for Dr. Irby and Dr. Holguin. 06/29/19 14:04 *DC/Admit/Observation/Transfer Diagnosis at time of Disposition: Chest pain Qualifiers: Chest pain type: unspecified Qualified Code(s): R07.9 - Chest pain, unspecified - Discharge Dispostion Condition at time of disposition: Guarded Decision to Admit order: Yes - Referrals - Patient Instructions - Post Discharge Activity
--- NOTE | 2019-06-29 11:42 | PDOC ---
Attending Attestation - Resident Resident Name: Daylin Kenney - ED Attending Attestation I have performed the following: I have examined & evaluated the patient, The case was reviewed & discussed with the resident, I agree w/resident's findings & plan, Exceptions are as noted - HPI HPI: 06/29/19 11:40 63 F with CAD, COPD, DM, HTN, presenting to ED with epigastric pain radiating to her chest. Pt states that the pain has been ongoing for several days. It is worse with exertion and associated with SOB. Denies any nausea/vomiting. Denies any leg swelling. Denies orthopnea. No F/C/cough. Denies diarrhea/constipation. - Physicial Exam PE: 06/29/19 11:50 GENERAL: Awake, alert, and fully oriented, in no acute distress. HEAD: No signs of trauma EYES: PERRLA, EOMI, sclera anicteric, conjunctiva clear ENT: Auricles normal inspection, hearing grossly normal, nares patent, oropharynx clear without exudates. Moist mucosa NECK: Nontender, no stepoffs, Normal ROM, supple, no lymphadenopathy, JVD, or masses LUNGS: Breath sounds equal, clear to auscultation bilaterally. No wheezes, and no crackles HEART: Regular rate and rhythm, normal S1 and S2, no murmurs, rubs or gallops ABDOMEN: Soft, nontender, normoactive bowel sounds. No guarding, no rebound. No masses EXTREMITIES: Normal range of motion, no edema. No clubbing or cyanosis. No cords, erythema, or tenderness NEUROLOGICAL: Cranial nerves II through XII intact. 5/5 strength and sensation in all extremities, Normal speech, normal gait, normal cerebellar function SKIN: Warm, Dry, normal turgor, no rashes or lesions noted. - Medical Decision Making 06/29/19 11:51 63 F with epigastric/chest pain and DAVIS. Pt with no ischemic EKG changes but has significant cardiac risk factors. Will need ACS r/o. Pt with benign abdomen , doubt GI etiology. - Labs, trops - CXR - C/s cards
--- NOTE | 2019-06-29 11:49 | EKG ---
Test Reason : Blood Pressure : / mmHG Vent. Rate : 085 BPM Atrial Rate : 085 BPM P-R Int : 180 ms QRS Dur : 070 ms QT Int : 354 ms P-R-T Axes : 069 045 063 degrees QTc Int : 421 ms NORMAL SINUS RHYTHM POSSIBLE LEFT ATRIAL ENLARGEMENT BORDERLINE ECG WHEN COMPARED WITH ECG OF 16-AUG-2018 10:15, NO SIGNIFICANT CHANGE WAS FOUND Confirmed by JOEL JUAREZ MD ([id number]) on 06/29/2019 11:48:45 AM Referred By: Confirmed By:JOEL JUAREZ MD
[2019-06-29 12:19] LABS: BASO % 0.1 % (0-2.0); EOS % 0.1 % (0-4.5); HEMATOCRIT 37.7 % (32.4-45.2); HEMOGLOBIN 12.7 GM/dL (10.7-15.3); LYMPH % 4.9 % (8-40); MCH 29.8 pg (25.7-33.7); MCHC 33.8 g/dl (32.0-36.0); MEAN CELL VOLUME 88.1 fl (80-96); MEAN PLT VOLUME 8.8 fl (7.5-11.1); MONO % 4.9 % (3.8-10.2); RBC 4.28 M/mm3 (3.60-5.2)
[2019-06-29] MEDS ORDERED: FAMOTIDINE 20 MG/50 ML IVPB 20 MG/50 ML MG IVPB ONE ×2 (12:42→13:07)
[2019-06-29 12:49] LABS: INR 1.05 (0.83-1.09); PROTHROMBIN TIME (PATIENT) 12.4 SEC (9.7-13.0)
[2019-06-29 12:52] LABS: ACTIVATED PTT 28.8 SECONDS (25.2-36.5)
[2019-06-29 12:58] LABS: ALBUMIN 3.5 g/dl (3.4-5.0); BILIRUBIN,TOTAL 0.4 mg/dL (0.2-1); BLOOD UREA NITROGEN 10.9 mg/dL (7-18); CALCIUM 9.4 mg/dL (8.5-10.1); CREATININE 0.7 mg/dL (0.55-1.3); N-TERMINAL BNP 725.9 pg/ml (5-125); POTASSIUM 3.8 mmol/L (3.5-5.1); TOT PROT 7.2 g/dl (6.4-8.2)
[2019-06-29 12:58] LABS: PLATELET COUNT 239 K/MM3 (134-434)
[2019-06-29] MEDS ORDERED: ATORVASTATIN CA 20 MG TABLET (FP) PO ONE (14:23)
--- NOTE | 2019-06-29 14:34 | CON.CARD ---
Consult Consult Specialty:: Cardiology Referred by:: ER Reason for Consultation:: Cardiac evaluation - History of Present Illness Chief Complaint: Chest pain History of Present Illness: Patient is a 63 year old female (seen by Dr. Julian Beckwith in the office) with underlying history of CAD/coronary artery calcification, negative pharmacological nuclear perfusion, HTN and hypercholesterolemia who presents with complaints of mid sternal chest discomfort that is non-radiating. She complains this fro past couple of weeks intermittently. She denies shortness of breath or palpitations. She denies paroxysmal nocturnal dyspnea or orthopnea. She denies fever or chills. She denies nausea. vomiting, diarrhea or abdominal pain. She denies headache or lightheadedness. Last nuclear MPI (09/10/18) revealed small zone of anteroapical fixed defect c/w soft tissue attenuation with LVEF of 75% both at rest and stress. - History Source History Provided By: Patient, Medical Record Limitations to Obtaining History: No Limitations - Past Medical History Cardio/Vascular: Yes: CAD, HTN, Hyperlipdemia Pulmonary: Yes: COPD Gastrointestinal: Yes: GERD - Past Surgical History Past Surgical History: Yes: Joint Replacement (knee replacement) - Alcohol/Substance Use Hx Alcohol Use: No - Smoking History Smoking history: Former smoker Have you smoked in the past 12 months: No Aproximately how many cigarettes per day: 20 If you are a former smoker, when did you quit?: 2009 Home Medications - Allergies Allergies/Adverse Reactions: Allergies Allergy/AdvReac Type Severity Reaction Status Date / Time No Known Allergies Allergy Verified 06/29/19 09:50 - Home Medications Home Medications: Ambulatory Orders Alprazolam 1 mg PO HS 04/19/15 Aspirin Coated [Ecotrin -] 81 mg PO DAILY 07/20/16 Atorvastatin Ca [Lipitor] 10 mg PO DAILY 07/20/16 Nebivolol [Bystolic -] 5 mg PO DAILY #30 tab 08/17/18 Pantoprazole Sodium 40 mg PO DAILY 02/23/19 Family Disease History - Family Disease History Family Disease History: Diabetes: Mother (dementia, HTN), Heart Disease: Father (CAD, hypercholesterolemia), Other: Mother Review of Systems - Review of Systems Constitutional: denies: Chills, Fever Cardiovascular: reports: Chest Pain. denies: Palpitations, Shortness of Breath Respiratory: denies: Cough, Hemoptysis, Orthopnea, PND, SOB, SOB on Exertion, Wheezing Gastrointestinal: denies: Abdominal Pain, Constipation, Diarrhea, Melena, Nausea , Rectal Bleeding, Vomiting Musculoskeletal: reports: Joint Pain Neurological: denies: Dizziness, Headache, Seizure, Syncope Vital Signs: Vital Signs Temperature 98.5 F 06/29/19 09:46 Pulse Rate 84 06/29/19 09:46 Respiratory Rate 17 06/29/19 09:46 Blood Pressure 125/77 06/29/19 09:46 O2 Sat by Pulse Oximetry (%) 98 06/29/19 09:46 Eyes: Yes: PERRL HENT: Yes: Atraumatic Neck: Yes: Supple Respiratory: Yes: Regular, CTA Bilaterally Gastrointestinal: Yes: Normal Bowel Sounds, Soft. No: Tenderness Cardiovascular: Yes: Regular Rate and Rhythm JVD: No PMI: Non-Displaced Heart Sounds: Yes: S1, S2 Murmur: No: Systolic Murmur Edema: No - Other Data Labs, Other Data: CBC, BMP 06/29/19 11:55 06/29/19 10:24 INR, PTT INR 1.05 (0.83-1.09) 06/29/19 11:55 Troponin, BNP 06/29/19 06/29/19 10:24 10:24 Troponin I 0.05 B-Natriuretic Peptide 725.9 H Normal sinus rhythm with LAD Problem List - Problems (1) Elevated coronary artery calcium score Code(s): R93.1 - ABNORMAL FINDINGS ON DX IMAGING OF HEART AND COR CIRC (2) Chest pain Code(s): R07.9 - CHEST PAIN, UNSPECIFIED Qualifiers: Chest pain type: unspecified Qualified Code(s): R07.9 - Chest pain, unspecified (3) Hyperlipidemia Code(s): E78.5 - HYPERLIPIDEMIA, UNSPECIFIED Qualifiers: Hyperlipidemia type: pure hypercholesterolemia Qualified Code(s): E78.00 - Pure hypercholesterolemia, unspecified; E78.0 - Pure hypercholesterolemia (4) Hypertension Code(s): I10 - ESSENTIAL (PRIMARY) HYPERTENSION Qualifiers: Hypertension type: essential hypertension Qualified Code(s): I10 - Essential (primary) hypertension (5) Mitral valve prolapse syndrome Code(s): I34.1 - NONRHEUMATIC MITRAL (VALVE) PROLAPSE Assessment/Plan 1. Chest pain syndrome with underlying coronary calcium ? GERD 2. History of GERD 3. HTN 4. Hypercholesterolemia 5. LV diastolic dysfunction with class 0 NYHA classification LV failure 6. COPD 7. Degenerative joint disease PLAN: 1. Serial cardiac enzymes. 2. ASA 81 mg QD 3. Continue Bystolic 5 mg QD 4. Atorvastatin 20 mg QD 5. Start Pantoprazole 40 mg QD 6. If cardiac enzymes are negative 3 sets, may be discharged home and further cardiac work up can be done as outpatient Yefri Irby MD
[2019-06-29] MEDS ORDERED: ACETAMINOPHEN 325 MG TABLET (FP) PO PRN (14:56)
--- NOTE | 2019-06-29 14:57 | HP ---
Admitting History and Physical - Primary Care Physician PCP: Tony Roman - Admission Chief Complaint: ABDOMINAL/CHEST PAIN History of Present Illness: 63 Y/O FEMALE WITH H/O HTN, LIPIDEMIA HERE WITH ABDOMINAL EPIGASTRIC PAIN WITH CHEST PAIN FOR MULTIPLE DAYS. PAIN IS BURNING, TENDER EPIGASTRIC AND NON- RADIATING 8/10 INTENSITY. History Source: Patient - Past Medical History Cardiovascular: Yes: CAD, HTN, Hyperlipdemia Pulmonary: Yes: COPD Gastrointestinal: Yes: GERD - Past Surgical History Past Surgical History: Yes: Joint Replacement (knee replacement) - Smoking History Smoking history: Former smoker Have you smoked in the past 12 months: No Aproximately how many cigarettes per day: 20 If you are a former smoker, when did you quit?: 2009 - Alcohol/Substance Use Hx Alcohol Use: No Home Medications - Allergies Allergies/Adverse Reactions: Allergies Allergy/AdvReac Type Severity Reaction Status Date / Time No Known Allergies Allergy Verified 06/29/19 09:50 - Home Medications Home Medications: Ambulatory Orders Alprazolam 1 mg PO HS 04/19/15 Aspirin Coated [Ecotrin -] 81 mg PO DAILY 07/20/16 Atorvastatin Ca [Lipitor] 10 mg PO DAILY 07/20/16 Nebivolol [Bystolic -] 5 mg PO DAILY #30 tab 08/17/18 Pantoprazole Sodium 40 mg PO DAILY 02/23/19 Family Disease History - Family Disease History Family Disease History: Diabetes: Mother (dementia, HTN), Heart Disease: Father (CAD, hypercholesterolemia), Other: Mother Review of Systems - Review of Systems Constitutional: reports: Loss of Appetite Cardiovascular: reports: Chest Pain Respiratory: reports: No Symptoms Gastrointestinal: reports: Abdominal Pain, Nausea Genitourinary: reports: No Symptoms Physical Examination Vital Signs: Vital Signs Temperature 98.5 F 06/29/19 09:46 Pulse Rate 84 06/29/19 09:46 Respiratory Rate 17 06/29/19 09:46 Blood Pressure 125/77 06/29/19 09:46 O2 Sat by Pulse Oximetry (%) 98 06/29/19 09:46 Constitutional: Yes: Moderate Distress Cardiovascular: Yes: Regular Rate and Rhythm Respiratory: Yes: WNL Gastrointestinal: Yes: Tenderness Renal/: Yes: WNL Musculoskeletal: Yes: WNL Edema: No Integumentary: Yes: WNL Wound/Incision: Yes: Clean/Dry Neurological: Yes: WNL ...Motor Strength: WNL Psychiatric: Yes: WNL Labs: CBC, BMP 06/29/19 11:55 06/29/19 10:24 Imaging - Results Chest X-ray: Report Reviewed Problem List - Problems (1) Epigastric abdominal pain Code(s): R10.13 - EPIGASTRIC PAIN (2) Chest pain Code(s): R07.9 - CHEST PAIN, UNSPECIFIED Qualifiers: Chest pain type: unspecified Qualified Code(s): R07.9 - Chest pain, unspecified Assessment/Plan CARDIAC WORKUP IN PROGRESS TROPONIN CHECKED/BNP LABS CARDIOLOGY EVAL PROTONIX IV LABS REVIEWED SONO ABDOMEN LFT ELEVATION WORKUP BLOOD CX/URINE CX UA PENDING PAIN CONTROL
[2019-06-29] MEDS ORDERED: ATORVASTATIN CA 20 MG TABLET (FP) ONE (15:37)
[2019-06-29] MEDS ORDERED: ACETAMINOPHEN 325 MG TABLET (FP) ONE (15:37)
[2019-06-29] MEDS ORDERED: PANTOPRAZOLE SODIUM 40 MG/100 ML BAG IVPB ONE (15:38)
[2019-06-29] MEDS: PANTOPRAZOLE SODIUM 40 MG VIAL IVPUSH SCH (15:55)
--- NOTE | 2019-06-29 18:03 | PN ---
Progress Note (short form) - Note Progress Note: ID consult dictated imp/reccd 63 yo female with 2 weeks history of worsening midepigastric discomfort worse with meals, no vomiting worse with greasy foods history of GERD- used to be on a PPI and now off- takes a lot of peptobismal followed by dr Hernandez had diarrhea saturday night, now resolved denies cough, no dysuria no fevers at home prior history of cholycystectomy in the past looks well leukocytosis/fever 100.8 in ED- now resolved abnormal lfts history of GERD blood cultures-?retained stone would agree with sonogram of liver f/u labs and cultures repeat labs in am
--- NOTE | 2019-06-29 20:42 | CONS ---
INFECTIOUS DISEASE CONSULTATION DATE OF CONSULTATION: 06/29/2019 REQUESTING PHYSICIAN: Tony Roman MD This is a 63-year-old woman who presented to the emergency room with complaints of 2 weeks of worsening mid-epigastric discomfort. She was concerned that she was having coronary chest pain since this is what her father had, and she came to the ER with these concerns. She has had symptoms for about 2 weeks. It is worse with meals , especially greasy and fried foods. She has had no fever. She has had no vomiting. She did have diarrhea day night after she returned from the [place], which is now resolved. She has had no cough or dysuria. She is status post cholecystectomy. She reports her main concern was that this could be cardiac as it reminded her of prior episodes with her father. She also has a history of GERD , for which she used to take a PPI. She is followed by Dr. Hernandez and is currently not on any GERD medications. She takes [id number] Pepto-Bismol. PRIMARY CARE PROVIDER: Arnoldo Graves MD SPINNER OPEN END: Julian Beckwith MD PAST MEDICAL HISTORY: Notable for a history of hypertension, coronary artery disease, hyperlipidemia, COPD, and GERD. SURGICAL HISTORY: Notable for bilateral partial knee replacements and she reports she has a history of prior gallbladder surgery many years ago. ALLERGIES: She has no known drug allergies. MEDICATIONS: She takes Bystolic, Lipitor, Ecotrin, and alprazolam at night. She reports currently to me she is not taking any PPI. FAMILY HISTORY: Notable for coronary artery disease. SOCIAL HISTORY: She is . She lives with her . She works in [employer] Their only travel is notable for a trip to the [place]. REVIEW OF SYSTEMS: She has no dysuria. She has no diarrhea. PHYSICAL EXAMINATION: Vital Signs: Her T-max was 100.8. On repeat, her temperature is normal at 98.5. Pulse of 84, blood pressure 104/67. Respiratory rate is 18. She is saturating 96% on room air. HEENT: She is normocephalic. Her eyes are anicteric. Neck: Supple.Lungs: Clear to auscultation. Heart: Regular rate and rhythm. Abdomen: Soft. She has mid-epigastric discomfort to palpation. She has no right upper quadrant pain. Extremities: Without edema. LABORATORY DATA: White count is 15, hemoglobin is 12.7, platelets are 239. INR is normal. BUN is 10 and creatinine 0.7. Her AST is 57, ALT of 84, normal bilirubin and alkaline phosphatase of 147. Urinalysis is negative. Chest x-ray was done and is normal. In summary, this is a 63-year-old woman admitted with abdominal pain, with a history of GERD. She also has had a self-resolving fever and leukocytosis with abnormal LFTs and a history of cholecystectomy. I would agree with blood cultures, would get a sonogram of the liver. She may need an MRCP to rule out retained stones. Would follow up cultures and labs. If she has further fever, would start Rocephin and Flagyl to cover for biliary pathogens. Further recommendations to follow. KENNETH ASHER M.D. ALLIE/[id number] MTDD
[2019-06-29] MEDS ORDERED: ALPRAZolam 2 MG TABLET PO ONE (21:51)
[2019-06-29] MEDS: HEPARIN NA (PORCINE) 5,000 UNITS/ML 1ML VIAL SQ SCH ×2 (22:18→22:21)
[2019-06-29 22:24] LABS: EPI CELLS 13.4 /HPF (0-5/HPF); HYALINE CASTS 21 /lpf (0-8); URINE APPEARANCE CLEAR; URINE BACTERIA 12.3 /hpf (NEGATIVE); URINE BILIRUBIN NEGATIVE (NEGATIVE); URINE COLOR DK YELLOW; URINE GLUCOSE (UA) NEGATIVE (NEGATIVE); URINE KETONE TRACE (NEGATIVE); URINE LEUK ESTERASE 1+ (NEGATIVE); URINE NITRITE NEGATIVE (NEGATIVE); URINE PROTEIN NEGATIVE (NEGATIVE); URINE WBC 20 /hpf (0-5)
[2019-06-29 23:35] LABS: URINE RBC 17.5 /hpf (0-4)
[2019-06-30 00:25] VITALS: BMI 29.9
[2019-06-30 06:38] VITALS: BP 98/62; PULSE 67; TEMP 98.2
[2019-06-30 06:45] LABS: BASO % 0.4 % (0-2.0); EOS % 2.3 % (0-4.5); HEMATOCRIT 35.5 % (32.4-45.2); LYMPH % 25.6 % (8-40); MCH 29.9 pg (25.7-33.7); MCHC 33.7 g/dl (32.0-36.0); MEAN CELL VOLUME 88.7 fl (80-96); MEAN PLT VOLUME 8.6 fl (7.5-11.1); MONO % 13.4 % (3.8-10.2); NEUT % 58.3 % (42.8-82.8); PLATELET COUNT 214 K/MM3 (134-434); RBC 4.01 M/mm3 (3.60-5.2); RDW 13.4 % (11.6-15.6); WHITE BLOOD COUNT 8.8 K/mm3 (4.0-10.0)
[2019-06-30 06:55] LABS: INR 1.14 (0.83-1.09); PROTHROMBIN TIME (PATIENT) 13.5 SEC (9.7-13.0)
[2019-06-30 07:21] LABS: BILIRUBIN,TOTAL 0.9 mg/dL (0.2-1); CALCIUM 8.7 mg/dL (8.5-10.1); CREATININE 0.7 mg/dL (0.55-1.3); MAGNESIUM 1.9 mg/dL (1.8-2.4); N-TERMINAL BNP 821.9 pg/ml (5-125); PHOSPHOROUS 2.9 mg/dL (2.5-4.9); POTASSIUM 3.7 mmol/L (3.5-5.1); TOT PROT 6.4 g/dl (6.4-8.2)
[2019-06-30] MEDS ORDERED: ASPIRIN COATED 81 MG TABLET.EC PO SCH (10:00)
[2019-06-30] MEDS ORDERED: NEBIVOLOL 5 MG TABLET (FP) PO SCH (10:00)
--- NOTE | 2019-06-30 10:20 | PN ---
Progress Note, Physician Chief Complaint: Not in distress History of Present Illness: Patient was seen and examined. Awake and alert. Chart was reviewed Less mid sternal pain. Denies SOB or palpitations - Current Medication List Current Medications: Active Medications Acetaminophen (Tylenol -) 650 mg PO Q6H PRN PRN Reason: PAIN OR FEVER Last Admin: 06/29/19 15:55 Dose: 650 mg Aspirin (Ecotrin -) 81 mg PO DAILY [facility] Atorvastatin Calcium (Lipitor -) 20 mg PO HS [facility] Heparin Sodium (Porcine) (Heparin -) 5,000 unit SQ BID [facility] Last Admin: 06/29/19 22:21 Dose: Not Given Nebivolol (Bystolic -) 5 mg PO DAILY [facility] Pantoprazole Sodium (Protonix Iv) 40 mg IVPUSH DAILY [facility] Last Admin: 06/29/19 15:55 Dose: 40 mg - Objective Vital Signs: Vital Signs Temperature 98.2 F 06/30/19 06:00 Pulse Rate 67 06/30/19 06:00 Respiratory Rate 18 06/30/19 06:00 Blood Pressure 98/62 06/30/19 06:00 O2 Sat by Pulse Oximetry (%) 98 06/30/19 00:32 Eyes: Yes: PERRL HENT: Yes: Atraumatic Neck: Yes: Supple Cardiovascular: Yes: Regular Rate and Rhythm, S1, S2 Respiratory: Yes: CTA Bilaterally Gastrointestinal: Yes: Normal Bowel Sounds, Soft. No: Tenderness Edema: No Additional Findings/Remarks: - Review of Systems Constitutional: denies: Chills, Fever Cardiovascular: reports: Chest Pain. denies: Palpitations, Shortness of Breath Respiratory: denies: Cough, Hemoptysis, Orthopnea, PND, SOB, SOB on Exertion, Wheezing Gastrointestinal: denies: Abdominal Pain, Constipation, Diarrhea, Melena, Nausea , Rectal Bleeding, Vomiting Musculoskeletal: reports: Joint Pain Neurological: denies: Dizziness, Headache, Seizure, Syncope Labs: CBC, BMP 06/30/19 06:10 06/30/19 06:10 INR, PTT INR 1.14 (0.83-1.09) H 06/30/19 06:10 Problem List - Problems (1) Elevated coronary artery calcium score Code(s): R93.1 - ABNORMAL FINDINGS ON DX IMAGING OF HEART AND COR CIRC (2) Chest pain Code(s): R07.9 - CHEST PAIN, UNSPECIFIED Qualifiers: Chest pain type: unspecified Qualified Code(s): R07.9 - Chest pain, unspecified (3) Hyperlipidemia Code(s): E78.5 - HYPERLIPIDEMIA, UNSPECIFIED Qualifiers: Hyperlipidemia type: pure hypercholesterolemia Qualified Code(s): E78.00 - Pure hypercholesterolemia, unspecified; E78.0 - Pure hypercholesterolemia (4) Hypertension Code(s): I10 - ESSENTIAL (PRIMARY) HYPERTENSION Qualifiers: Hypertension type: essential hypertension Qualified Code(s): I10 - Essential (primary) hypertension (5) Mitral valve prolapse syndrome Code(s): I34.1 - NONRHEUMATIC MITRAL (VALVE) PROLAPSE (6) GERD (gastroesophageal reflux disease) Code(s): K21.9 - GASTRO-ESOPHAGEAL REFLUX DISEASE WITHOUT ESOPHAGITIS Assessment/Plan 1. Chest pain syndrome with underlying coronary calcium ? GERD 2. History of GERD 3. HTN 4. Hypercholesterolemia 5. LV diastolic dysfunction with class 0 NYHA classification LV failure 6. COPD 7. Degenerative joint disease 8. Resolved leukocytosis 9. Resolved abnormal LFT PLAN: 1. Blood work was reviewed 2. ASA 81 mg QD 3. Continue Bystolic 5 mg QD 4. Atorvastatin 20 mg QD 5. Continue Pantoprazole 40 mg QD 6. Patient can be discharged cardiac stand point Yefri Irby MD
[2019-06-30] MEDS: HEPARIN NA (PORCINE) 5,000 UNITS/ML 1ML VIAL SQ SCH (11:14)
[2019-06-30] MEDS: PANTOPRAZOLE SODIUM 40 MG VIAL IVPUSH SCH (11:14)
--- NOTE | 2019-06-30 11:22 | PN ---
Progress Note, Physician Chief Complaint: Epigastric pain History of Present Illness: NAD trops x 3 negative Seen by cardiology no EKG changes - Current Medication List Current Medications: Active Medications Acetaminophen (Tylenol -) 650 mg PO Q6H PRN PRN Reason: PAIN OR FEVER Last Admin: 06/29/19 15:55 Dose: 650 mg Aspirin (Ecotrin -) 81 mg PO DAILY [facility] Last Admin: 06/30/19 11:14 Dose: 81 mg Atorvastatin Calcium (Lipitor -) 20 mg PO [facility] Heparin Sodium (Porcine) (Heparin -) 5,000 unit SQ BID [facility] Last Admin: 06/30/19 11:14 Dose: Not Given Nebivolol (Bystolic -) 5 mg PO DAILY [facility] Last Admin: 06/30/19 11:14 Dose: 5 mg Pantoprazole Sodium (Protonix Iv) 40 mg IVPUSH DAILY [facility] Last Admin: 06/30/19 11:14 Dose: 40 mg - Objective Vital Signs: Vital Signs Temperature 98.2 F 06/30/19 06:00 Pulse Rate 67 06/30/19 06:00 Respiratory Rate 18 06/30/19 06:00 Blood Pressure 98/62 06/30/19 06:00 O2 Sat by Pulse Oximetry (%) 98 06/30/19 00:32 Constitutional: Yes: Well Nourished, No Distress, Calm Cardiovascular: Yes: Regular Rate and Rhythm Respiratory: Yes: Regular, Tachypnea Gastrointestinal: Yes: Normal Bowel Sounds, Soft, Tenderness, Epigastrium (mild) Genitourinary: Yes: WNL Musculoskeletal: Yes: WNL Extremities: Yes: WNL Edema: No Peripheral Pulses WNL: Yes Neurological: Yes: Alert, Oriented Psychiatric: Yes: Alert, Oriented Labs: CBC, BMP 06/30/19 06:10 06/30/19 06:10 INR, PTT INR 1.14 (0.83-1.09) H 06/30/19 06:10 Problem List - Problems (1) Leukocytosis Assessment/Plan: -resolved -seen by ID -acute reactive response? -U/S abd negative -CXR negative -afebrile now -cultures pending Code(s): D72.829 - ELEVATED WHITE BLOOD CELL COUNT, UNSPECIFIED (2) Abnormal liver enzymes Assessment/Plan: -resolved -U/S abd no liver dz Code(s): R74.8 - ABNORMAL LEVELS OF OTHER SERUM ENZYMES (3) Epigastric abdominal pain Assessment/Plan: -resolved -s/p cholecystectomy -Has history of GERD -Dietary changes -continue PPI outpatient and f/u with GI Code(s): R10.13 - EPIGASTRIC PAIN Assessment/Plan see problem list
--- NOTE | 2019-06-30 13:15 | DS ---
Physical Examination Vital Signs: Vital Signs Temperature 98.2 F 06/30/19 06:00 Pulse Rate 67 06/30/19 06:00 Respiratory Rate 18 06/30/19 06:00 Blood Pressure 98/62 06/30/19 06:00 O2 Sat by Pulse Oximetry (%) 98 06/30/19 00:32 Findings/Remarks: 63 Y/O FEMALE WITH H/O HTN, LIPIDEMIA HERE WITH ABDOMINAL EPIGASTRIC PAIN WITH CHEST PAIN FOR MULTIPLE DAYS. PAIN IS BURNING, TENDER EPIGASTRIC AND NON- RADIATING 8/10 INTENSITY. Constitutional: Yes: Well Nourished, No Distress, Calm Cardiovascular: Yes: Regular Rate and Rhythm Respiratory: Yes: Regular Gastrointestinal: Yes: Normal Bowel Sounds, Soft, Tenderness, Epigastrium (mild) Renal/: Yes: WNL Musculoskeletal: Yes: WNL Extremities: Yes: WNL Edema: No Peripheral Pulses WNL: Yes Neurological: Yes: Alert, Oriented Psychiatric: Yes: Alert, Oriented Labs: CBC, BMP 06/30/19 06:10 06/30/19 06:10 Discharge Summary Reason For Visit: CHEST PAIN Current Active Problems Abnormal liver enzymes (Acute) Chest pain (Acute) Elevated coronary artery calcium score (Acute) Epigastric abdominal pain (Acute) GERD (gastroesophageal reflux disease) (Acute) Leukocytosis (Acute) Hospital Course: Laboratory Last Values WBC 8.8 K/mm3 (4.0-10.0) 06/30/19 06:10 RBC 4.01 M/mm3 (3.60-5.2) 06/30/19 06:10 Hgb 12.0 GM/dL (10.7-15.3) 06/30/19 06:10 Hct 35.5 % (32.4-45.2) 06/30/19 06:10 MCV 88.7 fl (80-96) 06/30/19 06:10 MCH 29.9 pg (25.7-33.7) 06/30/19 06:10 MCHC 33.7 g/dl (32.0-36.0) 06/30/19 06:10 RDW 13.4 % (11.6-15.6) 06/30/19 06:10 Plt Count 214 K/MM3 (134-434) 06/30/19 06:10 MPV 8.6 fl (7.5-11.1) 06/30/19 06:10 Absolute Neuts (auto) 5.2 K/mm3 (1.5-8.0) 06/30/19 06:10 Neutrophils % 58.3 % (42.8-82.8) D 06/30/19 06:10 Lymphocytes % 25.6 % (8-40) D 06/30/19 06:10 Monocytes % 13.4 % (3.8-10.2) H D 06/30/19 06:10 Eosinophils % 2.3 % (0-4.5) D 06/30/19 06:10 Basophils % 0.4 % (0-2.0) D 06/30/19 06:10 Nucleated RBC % 0 % (0-0) 06/30/19 06:10 PT with INR 13.50 SEC (9.7-13.0) H 06/30/19 06:10 INR 1.14 (0.83-1.09) H 06/30/19 06:10 PTT (Actin FS) 30.0 SECONDS (25.2-36.5) 06/30/19 06:10 Sodium 142 mmol/L (136-145) 06/30/19 06:10 Potassium 3.7 mmol/L (3.5-5.1) 06/30/19 06:10 Chloride 107 mmol/L (98-107) 06/30/19 06:10 Carbon Dioxide 29 mmol/L (21-32) 06/30/19 06:10 Anion Gap 7 MMOL/L (8-16) L 06/30/19 06:10 BUN 13.0 mg/dL (7-18) 06/30/19 06:10 Creatinine 0.7 mg/dL (0.55-1.3) 06/30/19 06:10 Est GFR (CKD-EPI)AfAm 106.12 06/30/19 06:10 Est GFR (CKD-EPI)NonAf 91.56 06/30/19 06:10 Random Glucose 89 mg/dL (74-106) 06/30/19 06:10 Calcium 8.7 mg/dL (8.5-10.1) 06/30/19 06:10 Phosphorus 2.9 mg/dL (2.5-4.9) 06/30/19 06:10 Magnesium 1.9 mg/dL (1.8-2.4) 06/30/19 06:10 Total Bilirubin 0.9 mg/dL (0.2-1) 06/30/19 06:10 AST 26 U/L (15-37) 06/30/19 06:10 ALT 60 U/L (13-61) 06/30/19 06:10 Alkaline Phosphatase 116 U/L (45-117) 06/30/19 06:10 Creatine Kinase 48 U/L (26-192) 06/30/19 10:36 Troponin I < 0.02 ng/ml (0.00-0.05) 06/30/19 10:36 B-Natriuretic Peptide 821.9 pg/ml (5-125) H 06/30/19 06:10 Total Protein 6.4 g/dl (6.4-8.2) 06/30/19 06:10 Albumin 3.0 g/dl (3.4-5.0) L 06/30/19 06:10 Triglycerides 84 mg/dL (0-150) 06/30/19 06:10 Cholesterol 99 mg/dL (50-200) 06/30/19 06:10 Total LDL Cholesterol 50 mg/dL (5-100) 06/30/19 06:10 HDL Cholesterol 41 mg/dL (40-60) 06/30/19 06:10 Lipase 120 U/L (73-393) 06/29/19 10:24 Urine Color Dk yellow 06/29/19 20:35 Urine Appearance Clear 06/29/19 20:35 Urine pH 6.0 (5.0-8.0) 06/29/19 20:35 Ur Specific Steen 1.031 (1.010-1.035) 06/29/19 20:35 Urine Protein Negative (NEGATIVE) 06/29/19 20:35 Urine Glucose (UA) Negative (NEGATIVE) 06/29/19 20:35 Urine Ketones Trace (NEGATIVE) H 06/29/19 20:35 Urine Blood 2+ (NEGATIVE) H 06/29/19 20:35 Urine Nitrite Negative (NEGATIVE) 06/29/19 20:35 Urine Bilirubin Negative (NEGATIVE) 06/29/19 20:35 Urine Urobilinogen 1.0 mg/dL (0.2-1.0) 06/29/19 20:35 Ur Leukocyte Esterase 1+ (NEGATIVE) H 06/29/19 20:35 Urine WBC (Auto) 20 /hpf (0-5) 06/29/19 20:35 Urine RBC (Auto) 17.5 /hpf (0-4) 06/29/19 20:35 Urine Casts (Auto) 21 /lpf (0-8) 06/29/19 20:35 U Epithel Cells (Auto) 13.4 /HPF (0-5/HPF) 06/29/19 20:35 Urine Bacteria (Auto) 12.3 /hpf (NEGATIVE) 06/29/19 20:35 Vital Signs Temp 98.2 F 06/30/19 06:00 Pulse 67 06/30/19 06:00 Resp 18 06/30/19 06:00 BP 98/62 06/30/19 06:00 Pulse Ox 98 06/30/19 00:32 Intake & Output 06/29/19 06/30/19 06/30/19 23:59 11:59 23:59 Intake Total 350 Balance 350 Weight 79.016 kg Intake: Oral 350 Other: Voiding Method Toilet Toilet # Unmeasured Voids Void 2 2 Bowel Movement No Height 5 ft 4 in Body Mass Index (BMI) 29.9 Weight Measurement Method Standing Scale Condition: Stable - Instructions Diet, Activity, Other Instructions: Start Pantoprazole 40 mg 1 tab daily Follow up with GI outpatient Referrals: Forest Hernandez MD [Staff Physician] - Disposition: HOME - Home Medications Comprehensive Discharge Medication List: Ambulatory Orders Alprazolam 1 mg PO HS 04/19/15 Aspirin Coated [Ecotrin -] 81 mg PO DAILY 07/20/16 Atorvastatin Ca [Lipitor] 10 mg PO DAILY 07/20/16 Nebivolol [Bystolic -] 5 mg PO DAILY #30 tab 08/17/18 Pantoprazole Sodium 40 mg PO DAILY #30 tablet. 06/30/19
[2019-06-30] MEDS ORDERED: ATORVASTATIN CA 20 MG TABLET (FP) PO SCH (22:00)
== END 2019-06-30 14:20 | disposition home or self-care (01) | DRG 303 ==
LOC: JER 09:42 → JERBED 13:19 → OBSVTOIN 14:55 → J4W 17:02
PROVIDERS: ADMIT Family Medicine; ATTEND Family Medicine
DX: I25.10 Atherosclerotic heart disease of native coronary artery without angina pectoris (principal); R07.89 Other chest pain; K21.9 Gastro-esophageal reflux disease without esophagitis; J44.9 Chronic obstructive pulmonary disease, unspecified; I10 Essential (primary) hypertension; E78.5 Hyperlipidemia, unspecified; R93.1 Abnormal findings on diagnostic imaging of heart and coronary circulation; I34.1 Nonrheumatic mitral (valve) prolapse; M19.90 Unspecified osteoarthritis, unspecified site; R10.13 Epigastric pain; D72.829 Elevated white blood cell count, unspecified; R50.9 Fever, unspecified; R94.5 Abnormal results of liver function studies; Z96.659 Presence of unspecified artificial knee joint
CPT/HCPCS: 36415; 71045-TC-FY; 76705-TC; 80053; 80061; 81003; 82550; 83690; 83721; 83735; 83880; 84100; 84484; 85025; 85610; 85730; 87040; 87086; 93005; 93010; 99285-25; G0378; J1644

== ENCOUNTER 2020-11-11 09:49 | Day surgery (SDC) | payer BC ==
[2020-11-09 16:18] VITALS: BMI 29.7
[2020-11-11 12:48] VITALS: BP 135/62; PULSE 61; TEMP 98
== END 2020-11-11 12:30 | disposition home or self-care (01) ==
LOC: FASU-ENDO 09:49
PROVIDERS: ATTEND Internal Medicine Gastroenterology
PROC: 0DBH8ZX Excision of Cecum, Via Natural or Artificial Opening Endoscopic, Diagnostic (ICD-10-PCS; principal; 2020-11-11 11:02)
DX: Z12.11 Encounter for screening for malignant neoplasm of colon (principal); K63.89 Other specified diseases of intestine; K64.1 Second degree hemorrhoids
CPT/HCPCS: 88305-TC

== ENCOUNTER 2022-02-23 08:57 | Day surgery (SDC) | payer BC, OTHER ==
[2022-02-20 16:47] VITALS: BMI 29.2
[2022-02-23 10:48] VITALS: TEMP 97
[2022-02-23 11:16] VITALS: BP 126/73; PULSE 72
== END 2022-02-23 11:47 | disposition home or self-care (01) ==
LOC: FASU-ENDO 08:57
PROVIDERS: ATTEND Internal Medicine Gastroenterology
PROC: 0DB68ZX Excision of Stomach, Via Natural or Artificial Opening Endoscopic, Diagnostic (ICD-10-PCS; 2022-02-23)
PROC: 0DB38ZX Excision of Lower Esophagus, Via Natural or Artificial Opening Endoscopic, Diagnostic (ICD-10-PCS; 2022-02-23)
PROC: 0DB98ZX Excision of Duodenum, Via Natural or Artificial Opening Endoscopic, Diagnostic (ICD-10-PCS; principal; 2022-02-23 10:30)
DX: K29.50 Unspecified chronic gastritis without bleeding (principal); K21.00 Gastro-esophageal reflux disease with esophagitis, without bleeding; K44.9 Diaphragmatic hernia without obstruction or gangrene; K31.9 Disease of stomach and duodenum, unspecified; R10.13 Epigastric pain
CPT/HCPCS: 88305-TC

== ENCOUNTER 2023-01-25 04:26 | Day surgery (SDC) | payer BC ==
[~2023-01-25 04:26] MED LIST: BUPIVACAINE HCL/PF 0.5% (5MG/ML) 10 ML VIAL NR ONE; LIDOCAINE HCL 1%, 10 MG/ML (20ML VIAL) NR ONE
[2023-01-25 10:41] VITALS: RESP 20
[2023-01-25] MEDS ORDERED: ceFAZolin SODIUM 1 GM VIAL IVPB ONE (13:55)
[2023-01-25] MEDS ORDERED: LIDOCAINE HCL 1%, 10 MG/ML (20ML VIAL) NR ONE (14:01)
[2023-01-25] MEDS ORDERED: BUPIVACAINE HCL/PF 0.5% (5MG/ML) 10 ML VIAL IJ ONE (14:01)
[2023-01-25] MEDS ORDERED: BUPIVACAINE HCL/PF 0.5% (5MG/ML) 10 ML VIAL NR ONE (14:01)
[2023-01-25] MEDS ORDERED: BUPIVACAINE HCL/PF 0.25% (2.5MG/ML) 10 ML VIAL IJ ONE (15:57)
[2023-01-25] MEDS ORDERED: FAMOTIDINE 20 MG TABLET PO SCH (16:40)
[2023-01-25] MEDS ORDERED: FAMOTIDINE 20 MG PREMIXED IVPB IVPB SCH (17:43)
[2023-01-25 18:18] VITALS: TEMP 97.1
[2023-01-25 18:42] VITALS: BP 132/76; PULSE 62
== END 2023-01-25 18:15 | disposition home or self-care (01) ==
LOC: JASU-SURG 04:26
PROVIDERS: ATTEND Podiatrist Foot & Ankle Surgery
PROC: 0SRN0JZ Replacement of Left Metatarsal-Phalangeal Joint with Synthetic Substitute, Open Approach (ICD-10-PCS; 2023-01-25)
PROC: 0LXW0ZZ Transfer Left Foot Tendon, Open Approach (ICD-10-PCS; 2023-01-25)
PROC: 0QBP0ZZ Excision of Left Metatarsal, Open Approach (ICD-10-PCS; 2023-01-25)
PROC: 0L8W0ZZ Division of Left Foot Tendon, Open Approach (ICD-10-PCS; 2023-01-25)
PROC: 0QSP04Z Reposition Left Metatarsal with Internal Fixation Device, Open Approach (ICD-10-PCS; principal; 2023-01-25 12:30)
DX: M20.12 Hallux valgus (acquired), left foot (principal); M20.42 Other hammer toe(s) (acquired), left foot; S93.149A Subluxation of metatarsophalangeal joint of unspecified toe(s), initial encounter; X58.XXXA Exposure to other specified factors, initial encounter; Y93.9 Activity, unspecified; Y92.9 Unspecified place or not applicable; Y99.9 Unspecified external cause status; M20.5X2 Other deformities of toe(s) (acquired), left foot
CPT/HCPCS: 26540; 28299; 28308; 28899; C1713; 73630-TC-LT; 76000-TC-FY; 88305-TC; 88311-TC; 93005; 93010